=== PATIENT | female | born 1965 | race Caucasian/White ===

== ENCOUNTER 2016-07-26 15:27 | Emergency (ER) | payer OTHER ==
[2016-07-26] MEDS ORDERED: Adacel (T-DAP) 0.5 ML VIAL ONE (15:36)
[2016-07-26] MEDS ORDERED: Lidocaine 1% 20 ML MDV ONE (15:41)
[2016-07-26] MEDS ORDERED: Bacitracin Zinc 1 Packet ONE (16:20)
== END 2016-07-26 16:30 | disposition home or self-care (01) ==
LOC: BURERS 15:27
DX: S61.012A Laceration without foreign body of left thumb without damage to nail, initial encounter (principal); I10 Essential (primary) hypertension; E11.9 Type 2 diabetes mellitus without complications; E03.9 Hypothyroidism, unspecified; Z79.84 Long term (current) use of oral hypoglycemic drugs; Z79.899 Other long term (current) drug therapy; W45.8XXA Other foreign body or object entering through skin, initial encounter
CPT/HCPCS: 12001; 90471; 90715; J2001